=== PATIENT | male | born 1950 | race Caucasian/White ===

== ENCOUNTER 2016-08-11 15:11 | Inpatient (IN) | payer OTHER, MEDICARE ==
[~2016-08-11] VITALS: Ht 172.7 cm; Wt 76.7 kg
[2016-08-11] VITALS (42 sets, daily range): BP systolic 55–160; BP diastolic 32–98
--- NOTE | ~2016-08-11 | HC ---
[facility] [place] [address] CONSULTATION Name: DARNELLCASEY Butler Room #: 203-P [facility] IN M.R.#: [id number] Admission: 08/11/16 Attend Phys: Carlos Cedillo DO Discharge: 08/21/16 Date of : 52 Report #: [id number] THIS REPORT FOR: //name// CC: Carlos Horton DATE OF CONSULTATION: 08/18/2016. HISTORY OF PRESENT ILLNESS: The patient is a 65-year-old male with history of diabetes mellitus, admitted with unresponsiveness and blood sugar 29. He was admitted to [place] and brought to the ICU. CT of the head was negative. He was thought to have multifactorial encephalopathy. His hospitalization however along with his acute respiratory failure, warranting mechanical ventilation. He developed acute renal failure, was noted to have shock and was diagnosed with meningoencephalitis. Infectious Disease is involved. His acute renal failure has resolved and his respiratory failure has resolved as well. He still has cognitive deficits. He is continuing on the antibiotics. He was also diagnosed with non-ST elevation KS. He has been transferred out of the ICU and we are seeing him in rehabilitation medicine consultation. PAST MEDICAL HISTORY: Includes chronic obstructive pulmonary disease, elevated lipids, he had a prior CVA with some hand weakness involving fine were skills, history of hypertension. HABITS: Tobacco use, 2 packs per day, quit in April, no history of alcohol abuse per history. ALLERGIES: No known drug allergies. SOCIAL HISTORY: The patient was previously noted to be independent and apparently was ambulatory without gait aids. He indicates he was living with his daughters, but I am uncertain regarding the authenticity of his history. REVIEW OF SYSTEMS: Did not offer any current complaints of chest pain, shortness of breath or abdominal discomfort. He has a premorbid left-sided weakness involving the hand. He has the history of diabetes. No focal extremity pain complaints. Did not offer any complaints of difficulty swallowing. No complaints of headache. PHYSICAL EXAMINATION: GENERAL: A 65-year-old male, no obvious distress. VITAL SIGNS: Last recorded temperature 98, pulse 79, respirations 18, blood pressure 132/84. NEUROLOGIC: He is alert. He will follow basic 1 step commands. He is easily distractable, tends to be tangential. Facies appeared symmetric. Functional range of motion of both upper extremities, strength is grade 4 to 4-/5. He appears to have some mild decreased coordination of that left distal upper [address] [address] CONSULTATION Name: CASEY PATRICK Carrie Room #: 203-P [facility] IN .R.#: [id number] Admission: 08/11/16 Attend Phys: Carlos Cedillo DO Discharge: 08/21/16 Date of : 52 Report #: [id number] extremity. Lower extremities functional range of motion with strength grade 4-/5. He was mod assist with sit to stand. Gait was just small steps with transfers. ASSESSMENT: A 65-year-old male with the following problem list: 1. Meningoencephalitis. 2. Shock, suspected septic. 3. Metabolic encephalopathy. 4. Acute respiratory failure that has resolved. 5. Acute renal failure that has resolved. 6. Non-ST elevation myocardial infarction. 7. Hypertension. 8. Hypoglycemia, which is better. 9. Chronic obstructive pulmonary disease. 10. Hyperlipidemia. 11. Premorbid cerebrovascular accident with some mild residual left hand fine motor skills. PLAN: We need to get further social history regarding his social support. I agree with therapy evaluations. He certainly may benefit from an acute in-hospital inpatient rehabilitation stay as he further medically stabilizes. We will be glad to follow along with you. <ELECTRONICALLY SIGNED> By: Luis Fregoso MD 08/23/16 1825 1227 [id number] Luis Fregoso MD /nt
--- NOTE | ~2016-08-11 | HC ---
[facility] [place] [address] CONSULTATION Name: CASEY PATRICK Room #: 243-P ADM IN M.R.#: [id number] Admission: 08/11/16 Attend Phys: Carlos Cedillo DO Discharge: Date of : 52 Report #: [id number] THIS REPORT FOR: //name// CC: Carlos Horton REASON FOR CONSULTATION: I was asked to evaluate concerning sepsis. HISTORY OF PRESENT ILLNESS: The patient was a 65-year-old, who was transferred from [facility] Emergency Room when patient was brought in there by his daughter after she was unable to wake him up earlier this a.m. Apparently, he has not been feeling well for the past week. He was not eating or drinking much. More fatigued and lying on a couch most of the days. This morning, she was found him shaking, somewhat combative and unresponsive, otherwise to verbal stimuli. Once in the Emergency Room, he was noted to have negative CT scan of the head. Drug screen was negative. His white count was 16,000, had elevated troponin with nonspecific ST-T wave changes on his electrocardiogram. Transferred to [facility] for further evaluation. He remains encephalopathic. He has been thrashing about, unable to communicate. On my arrival, he has been intubated, given 3 liters of IV fluids. He has indwelling Joshua catheter and IV access. He has had whitish tracheal secretions from his ET tube. Good urine output now, but noted that his creatinine on admission was over 4. There has been no nausea, vomiting or diarrhea recorded. Blood sugars initially was hypoglycemic. He has responding to IV fluids and D10. No reported travel. No other injury is reported. ALLERGIES: LEVAQUIN. MEDICATIONS: He was given ceftriaxone in the Emergency Room, now on Zosyn. PAST MEDICAL HISTORY: Diabetes, hypertension, hyperlipidemia, chronic pain, NH with stent placement. FAMILY HISTORY: Noncontributory. SOCIAL HISTORY: He chews tobacco, rare alcohol use. He is retired, lives alone. REVIEW OF SYSTEMS: Unable to obtain. PHYSICAL EXAMINATION: VITAL SIGNS: Afebrile and hemodynamically stable. His blood pressure will be dropped when he was given sedation for his intubation. Now, it is back up. He is on FiO2 of 50%. He was in restraints. He moved all extremities. NECK: Supple. Orally intubated. IV access unremarkable. GENITALIA: Indwelling Joshua catheter with unremarkable external genitalia. SKIN: Unremarkable. [facility] [address] [place] [address] CONSULTATION Name: CASEY PATRICK Room #: 243-P [facility] IN [facility]#: [id number] Admission: 08/11/16 Attend Phys: Carlos Cedillo DO Discharge: Date of : 52 Report #: [id number] EXTREMITIES: Right first toenail was partially avulsed. There is some bloody drainage. No surrounding cellulitis. CHEST: Clear anteriorly. HEART: Regular, without murmur. ABDOMEN: Soft, nontender. Did not appear to have any hepatosplenomegaly or mass. LABORATORY STUDIES: Ultrasound of the kidneys unremarkable. Chest x-ray was clear. Urinalysis had bacteriuria with moderate hematuria. CPK 660, sodium 140, potassium 3.3, bicarbonate 25, creatinine 4.3. Liver function tests normal except for an AST of 63. CPK-MB mass was 18.5 with a troponin of 0.8, hemoglobin 13.9, white count 15.9, platelet count 209,000. Differential: 77% neutrophils, 14% lymphs. Blood, urine, and sputum cultures pending. CT of the head on the outside ER was negative. Chest x-ray, no acute pulmonary infiltrates. IMPRESSION: A 65-year-old diabetic with coronary artery disease presents with sepsis. Source of his infection is yet to be determined. I am concerned about his encephalopathy. PLAN: Would recommend continuing broad antibiotic coverage. We will await cultures. We will have neurology evaluate. We will need repeat imaging of his brain, when possible and will arrange for LP first thing in the morning. The patient is too combative right now to pursue safely. We will continue with IV antibiotic therapy including vancomycin and Zosyn adjusted for his renal failure. We will also add antiviral therapy. <ELECTRONICALLY SIGNED> By: Geo Watkins MD 08/12/16 [id number] [id number] Geo Watkins MD /nt
--- NOTE | ~2016-08-11 | 2DMMODE ---
[facility] [address] [place] [address] 2 D/M-MODE ECHOCARDIOGRAM Name: CASEY PATRICK Room #: 243-P ADM IN M.R.#: [id number] Admission: 08/11/16 Attend Phys: Carlos Cedillo, Discharge: Date of : 52 Date of Service: 08/12/16 1756 Report #: [id number] THIS REPORT FOR: //name// APPROVED REPORT Study performed: 08/12/2016 15:15:01 EXAM: Comprehensive 2D, Doppler, and color-flow Echocardiogram Patient Location: ICU Room #: 243 Status: routine Other Information Study Quality: Technically Limited Indications Elevated Troponin 2D Dimensions RVDd: 40.54 mm Volumes Left Atrial Volume (Systole) Single Plane 4CH: 27.12 mL Aortic Valve AoV Peak Ant.: 1.37 m/s AO Peak Gr.: 7.51 mmHg LVOT Max P.85 mmHg LVOT Max V: 1.21 m/s Mitral Valve E/A Ratio: 1.2 MV Decel. Time: 242.06 ms MV E Max Ant.: 0.68 m/s MV A Ant.: 0.55 m/s MV PHT: 70.20 ms Pulmonary Valve PV Peak Ant.: 0.85 m/s PV Peak Gr.: 2.91 mmHg Tricuspid Valve TR Peak Ant.: 2.53 m/s TR Peak Gr.: 25.68 mmHg Left Ventricle [facility] [address] [place] [address] 2 D/M-MODE ECHOCARDIOGRAM Name: CASEY PATRICK Room #: 243-P ADM IN M.R.#: [id number] Admission: 08/11/16 Attend Phys: Carlos Cedillo, Discharge: Date of : 52 Date of Service: 08/12/16 1756 Report #: [id number] The left ventricle is normal size. Regional wall motion is not well visualized but grossly normal. Not well visualized The left ventricular systolic function is normal. LVEF is 60%. This study is not technically sufficient to allow evaluation of the LV diastolic function. Right Ventricle The right ventricle is normal size. The right ventricular systolic function is normal. Atria The left atrium size is normal. The right atrium size is normal. Aortic Valve The aortic valve is grossly normal in structure. Trace aortic regurgitation. There is no aortic valvular stenosis. Mitral Valve The mitral valve is normal in structure. No mitral regurgitation. No evidence of mitral valve stenosis. Tricuspid Valve The tricuspid valve is normal in structure. There is trace tricuspid regurgitation. The right atrial pressure is estimated at 10 mmHg. There is mild pulmonary hypertension with an estimated PAP of 36 mmHg. Pulmonic Valve The pulmonary valve is normal in structure. There is no pulmonic valvular regurgitation. Great Vessels The aortic root is normal in size. The IVC is dilated. Pericardium There is no pericardial effusion. <Conclusion> Very limited study The left ventricular systolic function is normal. Regional wall motion is not well visualized but grossly normal. LVEF is 60%. The aortic valve is grossly normal in structure. There is no aortic valvular stenosis or insufficiency. [facility] [address] [place] [address] 2 D/M-MODE ECHOCARDIOGRAM Name: CASEY PATRICK Room #: 243-P [facility] IN .R.#: [id number] Admission: 08/11/16 Attend Phys: Carlos Cedillo, Discharge: Date of : 52 Date of Service: 08/12/161755 Report #: [id number] The mitral valve is normal in structure. No mitral regurgitation. There is no pericardial effusion. <ELECTRONICALLY SIGNED> By: Johann Esqueda MD, FACC 08/12/161755 55 55 Johann Esqueda MD, FACC /INF
--- NOTE | ~2016-08-11 | EEG ---
[facility] [place] [address] ELECTROENCEPHALOGRAM Name: CASEY PATRICK Room #: 203-P [facility] IN M.R.#: [id number] Admission: 08/11/16 Attend Phys: Carlos Cedillo DO Discharge: 08/21/16 Date of : 52 Report #: [id number] THIS REPORT FOR: //name// CC: Carlos Horton DATE OF SERVICE: 08/12/2016 This patient is being evaluated for altered mental status. EEG was done by placing the electrodes by standard 10-20 system of electrode placement. Both referential and sequential montages were used for recording. Background activity appeared to be about 7 Hz and 10 microvolt. It is a low voltage activity. It is suppressed on both sides. Photic stimulation is unremarkable. IMPRESSION: This is an abnormal EEG because it is poorly formed and is suppressed. It is a nonspecific finding which can occur with dementia, encephalopathy, effect of psychotropic medication, etc. Clinical correlation is recommended. Thank you very much for this referral. <ELECTRONICALLY SIGNED> By: Soto Flores MD 08/23/16 1018 39 21 Soto Flores MD /nt
--- NOTE | ~2016-08-11 | EKG ---
[address] [place] [address] ELECTROCARDIOGRAM REPORT Name: CASEY PATRICK Room #: 243-P ADM IN M.R.#: [id number] Admission: 08/11/16 Attend Phys: Carlos Cedillo DO Discharge: Date of : 52 Report #: [id number] THIS REPORT FOR: //name// [facility] Test Date: 2016-08-11 Test Time: 17:37:07 Pat Name: CASEY PATRICK Department: Room: 243 P Gender: M Telephoto Installer: Tisha CHOI : 1950 Requested By: Linda Ruiz Order Number: [id number] MD: Johann Esqueda Measurements Intervals [place] Rate: 113 P: 76 CO: 146 QRS: 47 QRSD: 108 T: -1 QT: 316 QTc: 434 Interpretive Statements Sinus tachycardia Right ventricular conduction delay Compared to ECG 08/08/2006 07:37:34 heart rate is increased inferior and lateral ST and T wave abnormality is less prominent Electronically Signed On 08-12-2016 8:18:56 CDT by Johann Esqueda [email or web address] <ELECTRONICALLY SIGNED> By: Johann Esqueda MD, [facility] 08/12/16 0818 1737 1737 Johann Esqueda MD, [facility] /EPI
--- NOTE | ~2016-08-11 | HC ---
[facility] [place] [address] CONSULTATION Name: CASEY PATRICK Room #: 243-P ADM IN M.R.#: [id number] Admission: 08/11/16 Attend Phys: Carlos Cedillo DO Discharge: Date of : 52 Report #: [id number] THIS REPORT FOR: //name// CC: Carlos Horton DATE OF SERVICE: 08/11/2016 REASON FOR PRESENTATION: Mental status changes, acute kidney failure, transferred from another facility. HISTORY OF PRESENT ILLNESS: Unfortunately, the patient has acute mental status issues and he is not able to provide me with any history. His daughter is by the bedside and unfortunately she is also not able to provide me with the details of the history. This 65-year-old with past medical history of hypertension, diabetes mellitus. He also carries a diagnosis of coronary artery disease with unclear story regarding his coronary artery disease, the daughter tells me that he has a cardiac stent placed in one of his coronary vessels a while ago. This was discussed with the nurse practitioner of the Cardiology service and she has no recollection of that and there is no documentation of that. The daughter last checked on him couple of days ago and he was not feeling well. She reported that he has had repeated episodes of pneumonia. Apparently, the patient was found down today and the daughter called 911 Services where he was transferred through another facility. To summarize, in that facility, the patient was found to have leukocytosis, elevated creatinine at 4.4. He was also found to have an elevated D-dimer, mildly elevated troponin, was transferred to [facility] for further evaluation and management. The daughter does not recall any history of chronic kidney disease. Looking at his medication, it looks like that the patient has been on lisinopril, hydrochlorothiazide, simvastatin, and glipizide. On presentation to the emergency room, he was found to be extremely hypoglycemic with a BUN of 43 and a creatinine of 4.5 mandating a Nephrology consultation. PAST MEDICAL HISTORY: As far as the daughter can give me, diabetes mellitus, hypertension, hyperlipidemia, coronary artery disease. PAST SURGICAL HISTORY: Cardiac catheterization, daughter is not able to elaborate more on that. FAMILY HISTORY: Significant for diabetes mellitus and hypertension. REVIEW OF SYSTEMS: Not obtainable from the patient given his mental status issue; however, the daughter reported that he had not been feeling well with fever, chills, decreased p.o. intake in the last few days. The remainder of the review of system was unobtainable given the patient's mental status. [address] [address] CONSULTATION Name: CASEY PATRICK Room #: 243-P [facility] IN .R.#: [id number] Admission: 08/11/16 Attend Phys: Carlos Cedillo DO Discharge: Date of : 52 Report #: [id number] MEDICATIONS: 1. Prilosec. 2. Simvastatin. 3. Metoprolol. 4. Lisinopril. 5. Hydrochlorothiazide. 6. Glipizide. PHYSICAL EXAMINATION: GENERAL: The patient was disoriented to time, place and person. He was agitated, tachycardic. VITAL SIGNS: Pulse rate of 130, blood pressure was 130/60. HEAD AND NECK: Dry mucous membrane. CHEST: No crackles. CARDIOVASCULAR: Tachycardic with no rub. ABDOMEN: Soft, nontender with no hepatosplenomegaly. EXTREMITIES: Lower extremities, no edema. LABORATORY VALUES: Reviewed. He has leukocytosis with acute kidney injury and BUN of 43 and a creatinine of 4.5. Mildly elevated troponin was noted. ASSESSMENT, IMPRESSION AND PLAN: 1. Acute kidney injury. 2. Acute mental status changes. 3. Leukocytosis. 4. History of diabetes mellitus. 5. Hypoglycemia. 6. History of hypertension. 7. Coronary artery disease. 8. The patient seems to be septic to me. 9. I will send all appropriate septic workup including blood culture, urine cultures. 10. His acute kidney injury is probably related to while taking hydrochlorothiazide and lisinopril. However, we need to know his baseline. As for now, I we will send appropriate acute kidney injury workup. 11. Hypoglycemia is expected in the face of an oral hypoglycemic agent with an acute kidney injury. He will be started on D10. 12. Bolus with IV fluid as much as we could as much as he is able to tolerate. 13. We will switch to maintain his fluid after that. 14. Strict input and output. 15. Cardiac workup. 16. ID consultation and starting empiric antibiotic coverage after the cultures. 17. Monitor urine output. Joshua catheter is in place. 18. Ultrasound of the kidneys. 19. Try to obtain his primary care physicians record to know what his kidney [address] [address] CONSULTATION Name: CASEY PATRICK Room #: 243-P [facility] IN M.R.#: [id number] Admission: 08/11/16 Attend Phys: Carlos Cedillo DO Discharge: Date of : 52 Report #: [id number] function baseline was. 20. If needed scan his head, abdomen and pelvis. 21. The source of this febrile illness is not clear to me and further evaluation will be dictated based on his initial laboratory investigations. <ELECTRONICALLY SIGNED> By: Javad Kirkland MD 08/16/16 0607 2348 0112 Codie Zazueta MD /nt
[2016-08-11] MEDS ORDERED: ALBUTEROL2.5 MG/31 INH (15:36)
[2016-08-11] MEDS ORDERED: ASPIR 8181 MG PO (15:37)
[2016-08-11] MEDS ORDERED: AMBIEN 5 MG TABL5 M1 PO (15:37)
[2016-08-11] MEDS ORDERED: FENOFIBRATE54 MG PO (15:39)
[2016-08-11] MEDS ORDERED: COMBIVENT INH (15:39)
[2016-08-11] MEDS ORDERED: FLONASE 0.05%50 MCG NASAL (15:40)
[2016-08-11] MEDS ORDERED: GLIPIZIDE ER10 MG PO (15:41)
[2016-08-11] MEDS ORDERED: HYDROCHLOROTHIA25 M2 PO (15:42)
[2016-08-11] MEDS ORDERED: IMDUR 60 MG TAB60 M1 PO (15:43)
[2016-08-11] MEDS ORDERED: HYDROCODON-ACE1 EAC8 PO (15:43)
[2016-08-11] MEDS ORDERED: LISINOPRIL20 MG PO (15:44)
[2016-08-11] MEDS ORDERED: LEVOTHYROXIN0.025 MG PO (15:44)
[2016-08-11] MEDS ORDERED: LOPRESSOR50 MG PO (15:46)
[2016-08-11] MEDS ORDERED: NITROSTAT0.4 M1 SL (15:48)
[2016-08-11] MEDS ORDERED: PRILOSEC 20 MG20 MG PO (15:49)
[2016-08-11] MEDS ORDERED: PROAIR HFA8.5 GM INH (15:52)
[2016-08-11] MEDS ORDERED: ZOCOR20 MG PO (15:54)
[2016-08-11 16:13] LABS: ABSOLUTE NEUTROPHILS 12.3 thou/uL (1.4-8.2); BASOPHILS 1.4 % (0.0-2.0); EOSINOPHILS 0.3 % (0.0-3.0); HEMATOCRIT 42.2 % (42.0-52.0); HEMOGLOBIN 13.9 gm/dL (14.0-18.0); LYMPHOCYTES 14.4 % (24.0-44.0); MCH 27.3 pg (26.0-34.0); MCV 82.7 fL (80.0-100.0); MONOCYTES 6.3 % (1.0-8.0); PLATELET COUNT 209 thou/uL (150-400); POLYS 77.6 % (36.0-66.0); RBC 5.11 mil/uL (4.50-6.00); RDW 15.1 % (10.5-14.5); WBC 15.9 thou/uL (4.0-11.0)
[2016-08-11 16:14] LABS: MANUAL DIFF NO
[2016-08-11 16:22] LABS: CALCIUM 8.8 mg/dL (8.5-10.1); CREATININE 4.1 mg/dL (0.7-1.3); POTASSIUM 3.3 mmol/L (3.5-5.1)
[2016-08-11 16:36] LABS: CK-MB MASS 18.5 ng/mL (<0.5-3.6)
[2016-08-11 16:40] LABS: TROPONIN-I 0.81 ng/mL (<0.04-0.07)
[2016-08-11 17:12] LABS: CALCIUM 8.7 mg/dL (8.5-10.1); CREATININE 4.3 mg/dL (0.7-1.3); POTASSIUM 3.3 mmol/L (3.5-5.1); TOTAL BILIRUBIN 0.5 mg/dL (<0.1-1.0); TOTAL PROTEIN 7.6 g/dL (6.4-8.2)
[2016-08-11 17:42] LABS: ABG SAMPLE TYPE ARTERIAL; BE(vivo) -3.1 mmol/L (-2 to +3); HCO3 22.2 mmol/L (22.0-26.0); LACTATE 2.27 mmol/L (0.5-2.0); O2(CT) 18.2 mL/dL (15.0-23.0); O2Hb 94.2 % (92.0-98.0); PCO2 40.6 mmHg (35.0-45.0); PO2 82.1 mmHg (80.0-100.0); STICK SITE R.BRACHIAL; pH 7.355 (7.360-7.450); sO2 95.7 % (92.0-98.0); tCO2 23.4 mmol/L (24.0-30.0)
[2016-08-11 18:04] LABS: URINE BILIRUBIN NEGATIVE (Negative); URINE BLOOD 3+ (Negative); URINE COLOR YELLOW; URINE GLUCOSE-RANDOM* 1+ (Negative); URINE KETONES NEGATIVE (Negative); URINE LEUKOCYTES-REFLEX NEGATIVE (Negative); URINE PROTEIN (DIPSTICK) 1+ (Negative); URINE SPECIFIC GRAVITY 1.025 (1.003-1.035); URINE UROBILINOGEN 0.2 E.U./dl (0.2-1.0)
[2016-08-11 18:06] LABS: URINE CREATININE-RANDOM* 135.3 mg/dL
[2016-08-11 18:09] LABS: SQUAMOUS None Seen /LPF (0-3); URINE WBC-REFLEX 0-5 Rare /HPF (0-5)
[2016-08-11 18:10] LABS: COARSE GRANULAR CASTS 0-3 Few /LPF (None Seen); FINE GRANULAR CASTS 0-3 Few /LPF (None Seen)
[2016-08-11 18:11] LABS: CRYSTALS None Seen /LPF (None Seen)
[2016-08-11 21:49] LABS: ABG SAMPLE TYPE ARTERIAL; BE(vivo) -3.6 mmol/L (-2 to +3); HCO3 22.7 mmol/L (22.0-26.0); LACTATE 1.07 mmol/L (0.5-2.0); O2(CT) 18.2 mL/dL (15.0-23.0); O2Hb 98.2 % (92.0-98.0); PCO2 45.4 mmHg (35.0-45.0); PO2 197.5 mmHg (80.0-100.0); sO2 99.2 % (92.0-98.0); tCO2 24.1 mmol/L (24.0-30.0)
[2016-08-11 21:50] LABS: STICK SITE R.BRACHIAL; TIDAL VOLUME 500 ml; pH 7.316 (7.360-7.450)
[2016-08-11 22:41] LABS: BE(vivo) -6.9 mmol/L (-2 to +3); HCO3 20.3 mmol/L (22.0-26.0); LACTATE 2.14 mmol/L (0.5-2.0); O2(CT) 15.3 mL/dL (15.0-23.0); O2Hb VENOUS 86.2 (65.0-85.0); PCO2 VENOUS 47.6 mmHg (41.0-51.0); PO2 VENOUS 61.1 mmHg (35.0-45.0); sO2 VENOUS 87.3 % (65.0-85.0); tCO2 21.8 mmol/L (24.0-30.0)
[2016-08-11 22:42] LABS: ABG COMMENT VBG#1; ABG SAMPLE TYPE VENOUS; STICK SITE LINE; TIDAL VOLUME 500 ml
[2016-08-11 22:50] LABS: ABSOLUTE NEUTROPHILS 7.9 thou/uL (1.4-8.2); BASOPHILS 0.3 % (0.0-2.0); EOSINOPHILS 0.3 % (0.0-3.0); HEMATOCRIT 37.6 % (42.0-52.0); HEMOGLOBIN 12.5 gm/dL (14.0-18.0); LYMPHOCYTES 24.4 % (24.0-44.0); MCH 27.1 pg (26.0-34.0); MCHC 33.3 g/dL (28.0-37.0); MCV 81.5 fL (80.0-100.0); MONOCYTES 7.3 % (1.0-8.0); PLATELET COUNT 179 thou/uL (150-400); POLYS 67.7 % (36.0-66.0); RBC 4.62 mil/uL (4.50-6.00); WBC 11.7 thou/uL (4.0-11.0)
[2016-08-11 22:54] LABS: MANUAL DIFF NO
[2016-08-11 23:01] LABS: CALCIUM 7.9 mg/dL (8.5-10.1)
[2016-08-11 23:05] LABS: CREATININE 3.1 mg/dL (0.7-1.3)
[2016-08-11 23:07] LABS: APTT 26.5 Seconds (24.5-32.8); FIBRINOGEN 361.3 mg/dL (210-360); INR 1.1; PROTIME 11.4 Seconds (9.3-11.4)
[2016-08-11 23:16] LABS: ALBUMIN 3.1 g/dL (3.4-5.0); TOTAL BILIRUBIN 0.4 mg/dL (<0.1-1.0); TOTAL PROTEIN 6.5 g/dL (6.4-8.2)
[2016-08-11 23:48] LABS: ABG COMMENT VBG #2; ABG SAMPLE TYPE VENOUS; BE(vivo) -3.3 mmol/L (-2 to +3); HCO3 23.4 mmol/L (22.0-26.0); LACTATE 1.02 mmol/L (0.5-2.0); O2(CT) 14.3 mL/dL (15.0-23.0); O2Hb VENOUS 78.8 (65.0-85.0); PCO2 VENOUS 48.9 mmHg (41.0-51.0); PO2 VENOUS 49.1 mmHg (35.0-45.0); STICK SITE LINE; TIDAL VOLUME 500 ml; sO2 VENOUS 80.3 % (65.0-85.0); tCO2 24.9 mmol/L (24.0-30.0)
[2016-08-12] VITALS (84 sets, daily range): BP systolic 71–148; BP diastolic 51–104
[2016-08-12 00:37] LABS: ABG SAMPLE TYPE VENOUS; BE(vivo) -3.4 mmol/L (-2 to +3); HCO3 23.4 mmol/L (22.0-26.0); LACTATE 0.88 mmol/L (0.5-2.0); O2(CT) 14.1 mL/dL (15.0-23.0); PO2 VENOUS 49.4 mmHg (35.0-45.0); sO2 VENOUS 80.5 % (65.0-85.0); tCO2 24.9 mmol/L (24.0-30.0)
[2016-08-12 00:38] LABS: STICK SITE LINE; TIDAL VOLUME 500 ml
[2016-08-12 00:39] LABS: ABG COMMENT VBG#3
[2016-08-12 01:27] LABS: ABG COMMENT VBG#4; ABG SAMPLE TYPE VENOUS; BE(vivo) -3.8 mmol/L (-2 to +3); HCO3 23.3 mmol/L (22.0-26.0); LACTATE 0.99 mmol/L (0.5-2.0); O2(CT) 15.1 mL/dL (15.0-23.0); O2Hb VENOUS 81.9 (65.0-85.0); PCO2 VENOUS 50.4 mmHg (41.0-51.0); PO2 VENOUS 52.3 mmHg (35.0-45.0); STICK SITE LINE; TIDAL VOLUME 500 ml; sO2 VENOUS 82.4 % (65.0-85.0); tCO2 24.8 mmol/L (24.0-30.0)
[2016-08-12 04:33] LABS: ABG SAMPLE TYPE ARTERIAL; BE(vivo) -4.2 mmol/L (-2 to +3); HCO3 21.8 mmol/L (22.0-26.0); LACTATE 0.91 mmol/L (0.5-2.0); O2(CT) 17.8 mL/dL (15.0-23.0); O2Hb 97.5 % (92.0-98.0); PCO2 43.5 mmHg (35.0-45.0); PO2 144.3 mmHg (80.0-100.0); sO2 98.7 % (92.0-98.0); tCO2 23.1 mmol/L (24.0-30.0)
[2016-08-12 04:34] LABS: ABG COMMENT A/C MODE; STICK SITE L.RADIAL; TIDAL VOLUME 500 ml; pH 7.318 (7.360-7.450)
[2016-08-12 05:23] LABS: BASOPHILS 0.9 % (0.0-2.0); EOSINOPHILS 2.2 % (0.0-3.0); HEMATOCRIT 35.5 % (42.0-52.0); HEMOGLOBIN 11.7 gm/dL (14.0-18.0); LYMPHOCYTES 30.9 % (24.0-44.0); MCH 27.4 pg (26.0-34.0); MCHC 32.8 g/dL (28.0-37.0); MCV 83.5 fL (80.0-100.0); MONOCYTES 7.1 % (1.0-8.0); PLATELET COUNT 213 thou/uL (150-400); POLYS 58.9 % (36.0-66.0); RBC 4.26 mil/uL (4.50-6.00); RDW 14.8 % (10.5-14.5); WBC 11.9 thou/uL (4.0-11.0)
[2016-08-12 05:37] LABS: MANUAL DIFF NO
[2016-08-12 05:38] LABS: ALBUMIN 2.8 g/dL (3.4-5.0); CALCIUM 7.8 mg/dL (8.5-10.1); CREATININE 2.4 mg/dL (0.7-1.3); TOTAL BILIRUBIN 0.6 mg/dL (<0.1-1.0); TOTAL PROTEIN 5.6 g/dL (6.4-8.2)
[2016-08-12 05:47] LABS: POTASSIUM 2.9 mmol/L (3.5-5.1)
[2016-08-12 10:42] LABS: CSF CLARITY CLEAR; CSF COLOR COLORLESS; MANUAL DIFF YES; NUMBER OF TUBES 4; VOLUME 14 ml
[2016-08-12 10:45] LABS: CSF GLUCOSE 79 mg/dL (40-70); CSF PROTEIN 62 mg/dL (15-45)
[2016-08-12 11:41] LABS: CSF MONONUCLEARS 10 %; CSF POLYS 90 %
[2016-08-12 11:43] LABS: ABG SAMPLE TYPE ARTERIAL; BE(vivo) 0.2 mmol/L (-2 to +3); FIO2 40 %; HCO3 25.4 mmol/L (22.0-26.0); LACTATE 1.08 mmol/L (0.5-2.0); O2(CT) 18.5 mL/dL (15.0-23.0); O2Hb 97.8 % (92.0-98.0); PCO2 43.2 mmHg (35.0-45.0); PO2 140.9 mmHg (80.0-100.0); STICK SITE L.RADIAL; pH 7.387 (7.360-7.450); sO2 98.8 % (92.0-98.0); tCO2 26.7 mmol/L (24.0-30.0)
[2016-08-12 11:44] LABS: TIDAL VOLUME 500 ml
[2016-08-12 11:45] LABS: CSF WBC 270 /mm3 (0-10)
[2016-08-12 13:45] LABS: CALCIUM 8.3 mg/dL (8.5-10.1); CREATININE 2.1 mg/dL (0.7-1.3); POTASSIUM 3.1 mmol/L (3.5-5.1)
[2016-08-12 13:51] LABS: CHOLESTEROL 136 mg/dL (<200); HDL CHOLESTEROL 27 mg/dL (>40); LDL CHOLESTEROL 68 mg/dL (<100); TRIGLYCERIDE 208 mg/dL (<150); VLDL 42 mg/dL (<40)
[2016-08-13] VITALS (42 sets, daily range): BP systolic 105–152; BP diastolic 48–84
[2016-08-13 05:21] LABS: ABG SAMPLE TYPE ARTERIAL; BE(vivo) 1.5 mmol/L (-2 to +3); LACTATE 0.88 mmol/L (0.5-2.0); O2(CT) 16.9 mL/dL (15.0-23.0); O2Hb 96.8 % (92.0-98.0); PCO2 46.5 mmHg (35.0-45.0); PO2 105.3 mmHg (80.0-100.0); pH 7.382 (7.360-7.450); sO2 97.7 % (92.0-98.0); tCO2 28.4 mmol/L (24.0-30.0)
[2016-08-13 05:22] LABS: STICK SITE R.RADIAL; TIDAL VOLUME 500 ml
[2016-08-13 05:45] LABS: ABSOLUTE NEUTROPHILS 4.6 thou/uL (1.4-8.2); BASOPHILS 0.6 % (0.0-2.0); EOSINOPHILS 6.3 % (0.0-3.0); HEMOGLOBIN 11.4 gm/dL (14.0-18.0); LYMPHOCYTES 24.5 % (24.0-44.0); MANUAL DIFF NO; MCH 27.7 pg (26.0-34.0); MCHC 33.7 g/dL (28.0-37.0); MCV 82.4 fL (80.0-100.0); PLATELET COUNT 135 thou/uL (150-400); POLYS 59.6 % (36.0-66.0); RBC 4.12 mil/uL (4.50-6.00); WBC 7.7 thou/uL (4.0-11.0)
[2016-08-13 05:57] LABS: ALBUMIN 2.9 g/dL (3.4-5.0); CALCIUM 8.5 mg/dL (8.5-10.1); CREATININE 1.5 mg/dL (0.7-1.3); MAGNESIUM 1.2 mg/dL (1.8-2.4); PHOSPHORUS 1.8 mg/dL (2.5-4.9); POTASSIUM 3.1 mmol/L (3.5-5.1); TOTAL BILIRUBIN 0.4 mg/dL (<0.1-1.0); TOTAL PROTEIN 6.2 g/dL (6.4-8.2)
[2016-08-14] VITALS (47 sets, daily range): BP systolic 112–153; BP diastolic 63–88
[2016-08-14 05:11] LABS: ABSOLUTE NEUTROPHILS 3.9 thou/uL (1.4-8.2); BASOPHILS 0.2 % (0.0-2.0); EOSINOPHILS 6.4 % (0.0-3.0); HEMATOCRIT 33.7 % (42.0-52.0); HEMOGLOBIN 11.3 gm/dL (14.0-18.0); MCH 27.9 pg (26.0-34.0); MCHC 33.6 g/dL (28.0-37.0); MCV 83.2 fL (80.0-100.0); MONOCYTES 8.3 % (1.0-8.0); PLATELET COUNT 148 thou/uL (150-400); POLYS 56.1 % (36.0-66.0); RBC 4.05 mil/uL (4.50-6.00); RDW 14.8 % (10.5-14.5); WBC 6.9 thou/uL (4.0-11.0)
[2016-08-14 05:16] LABS: MANUAL DIFF NO
[2016-08-14 05:26] LABS: ALBUMIN 2.8 g/dL (3.4-5.0); CALCIUM 8.5 mg/dL (8.5-10.1); CREATININE 1.3 mg/dL (0.7-1.3); PHOSPHORUS 2.9 mg/dL (2.5-4.9); POTASSIUM 3.4 mmol/L (3.5-5.1)
[2016-08-14 17:10] LABS: ABG COMMENT CMV MODE; ABG SAMPLE TYPE ARTERIAL; BE(vivo) 1.5 mmol/L (-2 to +3); O2(CT) 16.8 mL/dL (15.0-23.0); O2Hb 96.6 % (92.0-98.0); PCO2 40.5 mmHg (35.0-45.0); STICK SITE R.RADIAL; TIDAL VOLUME 500 ml; pH 7.425 (7.360-7.450); sO2 97.8 % (92.0-98.0); tCO2 27.2 mmol/L (24.0-30.0)
[2016-08-15] VITALS (25 sets, daily range): BP systolic 109–165; BP diastolic 63–97
[2016-08-15 05:32] LABS: ABG SAMPLE TYPE ARTERIAL; BE(vivo) 2.6 mmol/L (-2 to +3); HCO3 27.4 mmol/L (22.0-26.0); LACTATE 0.61 mmol/L (0.5-2.0); O2(CT) 16.9 mL/dL (15.0-23.0); O2Hb 97.5 % (92.0-98.0); PCO2 42.8 mmHg (35.0-45.0); PO2 127.1 mmHg (80.0-100.0); pH 7.424 (7.360-7.450); sO2 98.6 % (92.0-98.0); tCO2 28.7 mmol/L (24.0-30.0)
[2016-08-15 05:33] LABS: STICK SITE L.RADIAL; TIDAL VOLUME 500 ml
[2016-08-15 05:43] LABS: ALBUMIN 2.7 g/dL (3.4-5.0); CALCIUM 8.7 mg/dL (8.5-10.1); CREATININE 1.1 mg/dL (0.7-1.3); PHOSPHORUS 2.9 mg/dL (2.5-4.9); POTASSIUM 4.1 mmol/L (3.5-5.1)
[2016-08-15 12:26] LABS: HSV PCR SOURCE SERUM
[2016-08-15 12:27] LABS: HSV PCR SOURCE CSF
[2016-08-16] VITALS (24 sets, daily range): BP systolic 124–157; BP diastolic 69–96
[2016-08-16 04:27] LABS: ABG SAMPLE TYPE ARTERIAL; BE(vivo) 4.7 mmol/L (-2 to +3); LACTATE 0.67 mmol/L (0.5-2.0); O2(CT) 16.6 mL/dL (15.0-23.0); O2Hb 96.1 % (92.0-98.0); PCO2 47.6 mmHg (35.0-45.0); PO2 94.5 mmHg (80.0-100.0); pH 7.418 (7.360-7.450); sO2 97.3 % (92.0-98.0); tCO2 31.5 mmol/L (24.0-30.0)
[2016-08-16 04:28] LABS: ABG COMMENT A/C RATE 14; STICK SITE L.RADIAL; TIDAL VOLUME 500 ml
[2016-08-16 05:27] LABS: HEMATOCRIT 33.2 % (42.0-52.0); HEMOGLOBIN 11.2 gm/dL (14.0-18.0); MCHC 33.8 g/dL (28.0-37.0); RBC 3.99 mil/uL (4.50-6.00); RDW 14.8 % (10.5-14.5); WBC 5.8 thou/uL (4.0-11.0)
[2016-08-16 05:42] LABS: ALBUMIN 2.6 g/dL (3.4-5.0); CALCIUM 8.8 mg/dL (8.5-10.1); MAGNESIUM 1.6 mg/dL (1.8-2.4); PHOSPHORUS 3.1 mg/dL (2.5-4.9); POTASSIUM 3.9 mmol/L (3.5-5.1)
[2016-08-16 15:49] LABS: ABG SAMPLE TYPE ARTERIAL; BE(vivo) 3.8 mmol/L (-2 to +3); HCO3 27.6 mmol/L (22.0-26.0); LACTATE 0.65 mmol/L (0.5-2.0); O2(CT) 17.2 mL/dL (15.0-23.0); O2Hb 95.5 % (92.0-98.0); PCO2 38.5 mmHg (35.0-45.0); PO2 79.7 mmHg (80.0-100.0); STICK SITE L.RADIAL; pH 7.473 (7.360-7.450); sO2 96.5 % (92.0-98.0); tCO2 28.8 mmol/L (24.0-30.0)
[2016-08-17] VITALS (23 sets, daily range): BP systolic 134–172; BP diastolic 57–101
[2016-08-17 05:01] LABS: ABG SAMPLE TYPE ARTERIAL; BE(vivo) 4.6 mmol/L (-2 to +3); HCO3 27.9 mmol/L (22.0-26.0); O2Hb 92.7 % (92.0-98.0); STICK SITE R.BRACHIAL; pH 7.496 (7.360-7.450); sO2 94.4 % (92.0-98.0); tCO2 29.1 mmol/L (24.0-30.0)
[2016-08-17 05:11] LABS: ABSOLUTE NEUTROPHILS 3.7 thou/uL (1.4-8.2); BASOPHILS 1.4 % (0.0-2.0); EOSINOPHILS 10.6 % (0.0-3.0); HEMATOCRIT 36.5 % (42.0-52.0); HEMOGLOBIN 12.2 gm/dL (14.0-18.0); LYMPHOCYTES 30.9 % (24.0-44.0); MCH 27.7 pg (26.0-34.0); MCHC 33.3 g/dL (28.0-37.0); MCV 83.1 fL (80.0-100.0); MONOCYTES 6.6 % (1.0-8.0); PLATELET COUNT 177 thou/uL (150-400); POLYS 50.5 % (36.0-66.0); RDW 14.5 % (10.5-14.5); WBC 7.4 thou/uL (4.0-11.0)
[2016-08-17 05:17] LABS: MANUAL DIFF NO
[2016-08-17 05:25] LABS: CALCIUM 9.2 mg/dL (8.5-10.1); CREATININE 1.2 mg/dL (0.7-1.3); POTASSIUM 3.5 mmol/L (3.5-5.1)
[2016-08-18 04:12] VITALS: BP 130/83
[2016-08-18 07:20] VITALS: BP 132/84
[2016-08-18 11:30] VITALS: BP 128/82
[2016-08-18 15:20] VITALS: BP 128/88
[2016-08-18 19:22] VITALS: BP 111/56
[2016-08-19 03:31] VITALS: BP 144/86
[2016-08-19 06:29] LABS: ABSOLUTE NEUTROPHILS 3.6 thou/uL (1.4-8.2); BASOPHILS 1.2 % (0.0-2.0); EOSINOPHILS 6.9 % (0.0-3.0); HEMATOCRIT 36.1 % (42.0-52.0); LYMPHOCYTES 34.1 % (24.0-44.0); MCH 27.4 pg (26.0-34.0); MCHC 33.3 g/dL (28.0-37.0); MCV 82.3 fL (80.0-100.0); MONOCYTES 6.7 % (1.0-8.0); PLATELET COUNT 158 thou/uL (150-400); POLYS 51.1 % (36.0-66.0); RBC 4.39 mil/uL (4.50-6.00); RDW 14.5 % (10.5-14.5)
[2016-08-19 06:30] LABS: MANUAL DIFF NO
[2016-08-19 06:44] LABS: CREATININE 1.2 mg/dL (0.7-1.3); POTASSIUM 3.1 mmol/L (3.5-5.1)
[2016-08-19 07:23] VITALS: BP 138/80
[2016-08-19 11:26] VITALS: BP 130/83
[2016-08-19 15:56] VITALS: BP 159/95
[2016-08-19 16:29] VITALS: BP 159/95
[2016-08-19 19:46] VITALS: BP 143/87
[2016-08-20] VITALS (7 sets, daily range): BP systolic 131–165; BP diastolic 74–95
[2016-08-20 06:33] LABS: ABSOLUTE NEUTROPHILS 4.1 thou/uL (1.4-8.2); EOSINOPHILS 7.5 % (0.0-3.0); HEMATOCRIT 35.3 % (42.0-52.0); HEMOGLOBIN 11.7 gm/dL (14.0-18.0); LYMPHOCYTES 31.7 % (24.0-44.0); MCH 27.6 pg (26.0-34.0); MCHC 33.2 g/dL (28.0-37.0); MCV 83.1 fL (80.0-100.0); MONOCYTES 6.2 % (1.0-8.0); PLATELET COUNT 163 thou/uL (150-400); POLYS 53.6 % (36.0-66.0); RBC 4.25 mil/uL (4.50-6.00); RDW 14.4 % (10.5-14.5); WBC 7.7 thou/uL (4.0-11.0)
[2016-08-20 06:34] LABS: MANUAL DIFF NO
[2016-08-20 06:41] LABS: CALCIUM 8.6 mg/dL (8.5-10.1); CREATININE 1.1 mg/dL (0.7-1.3)
[2016-08-20] MEDS ORDERED: NORCO 5-325 TA1 EACH PO (12:15)
[2016-08-21 03:36] VITALS: BP 151/91
[2016-08-21 07:40] VITALS: BP 154/85
[2016-08-21 09:10] VITALS: BP 159/95
== END 2016-08-21 09:48 | disposition home health service (06) | DRG 870 ==
LOC: ICU 15:11 → 2N 08-17 21:29
PROVIDERS: Family Medicine; Hospitalist; Internal Medicine Nephrology; Internal Medicine Pulmonary Disease; Psychiatry & Neurology Neurology; Specialist
PROC: 5A1955Z Respiratory Ventilation, Greater than 96 Consecutive Hours (ICD-10-PCS; principal; 2016-08-11)
PROC: 0BH17EZ Insertion of Endotracheal Airway into Trachea, Via Natural or Artificial Opening (ICD-10-PCS; principal; 2016-08-11)
PROC: 02HV33Z Insertion of Infusion Device into Superior Vena Cava, Percutaneous Approach (ICD-10-PCS; 2016-08-11)
PROC: B548ZZA Ultrasonography of Superior Vena Cava, Guidance (ICD-10-PCS; 2016-08-11)
PROC: 009U3ZX Drainage of Spinal Canal, Percutaneous Approach, Diagnostic (ICD-10-PCS; 2016-08-16)
DX: A41.2 Sepsis due to unspecified staphylococcus (principal); I21.4 Non-ST elevation (NSTEMI) myocardial infarction; G04.90 Encephalitis and encephalomyelitis, unspecified; G93.41 Metabolic encephalopathy; J96.00 Acute respiratory failure, unspecified whether with hypoxia or hypercapnia; N17.9 Acute kidney failure, unspecified; J98.11 Atelectasis; I69.354 Hemiplegia and hemiparesis following cerebral infarction affecting left non-dominant side; J44.9 Chronic obstructive pulmonary disease, unspecified; E78.5 Hyperlipidemia, unspecified; G89.29 Other chronic pain; E78.00 Pure hypercholesterolemia, unspecified; I25.10 Atherosclerotic heart disease of native coronary artery without angina pectoris; Z60.2 Problems related to living alone; E11.649 Type 2 diabetes mellitus with hypoglycemia without coma; E87.6 Hypokalemia; R45.1 Restlessness and agitation; R65.20 Severe sepsis without septic shock; D64.9 Anemia, unspecified; F17.220 Nicotine dependence, chewing tobacco, uncomplicated; D69.6 Thrombocytopenia, unspecified; E11.22 Type 2 diabetes mellitus with diabetic chronic kidney disease; I12.9 Hypertensive chronic kidney disease with stage 1 through stage 4 chronic kidney disease, or unspecified chronic kidney disease; N18.9 Chronic kidney disease, unspecified; Z79.899 Other long term (current) drug therapy; Z79.82 Long term (current) use of aspirin; Z95.5 Presence of coronary angioplasty implant and graft; Z88.8 Allergy status to other drugs, medicaments and biological substances; Z88.1 Allergy status to other antibiotic agents; Z79.4 Long term (current) use of insulin; Z82.49 Family history of ischemic heart disease and other diseases of the circulatory system; Z83.3 Family history of diabetes mellitus; Z98.62 Peripheral vascular angioplasty status
CPT/HCPCS: 10078; 10081; 27000